=== PATIENT | female | born 1955 | race Caucasian/White ===

== ENCOUNTER 2017-12-29 19:40 | Emergency (ER) | payer OTHER ==
[~2017-12-29] VITALS: Ht 162.6 cm; Wt 102.1 kg
[~2017-12-29 19:40] MED LIST: BREX1TAB6 PO; CHLO100 PO; DIAZ10TA PO; LEVO100T4 PO; LOVA20 PO; TEMA15 PO
[2017-12-29 19:47] VITALS: BP 177/76; PULSE 79; RESP 18; TEMP 98.7; O2SAT 97
[2017-12-29] MEDS ORDERED: SODIUM CHLORIDE 0.9% FLUSH 10 ML FLUSH IVF PRN (21:00)
[2017-12-29] MEDS ORDERED: DEXAMETHASONE SOD PHOS 4 MG/ML VIAL IM ONE (21:45)
[2017-12-29] MEDS: RESP: ALBUTEROL 2.5 MG/IPRATROPIUM 0.5 MG NEB (SCH) INH ×3 (21:48→22:20)
--- NOTE | 2017-12-29 21:52 | RADRPT ---
EXAM DATE/TIME: 12/29/2017 21:20 [place] COMPARISON: CHEST SINGLE AP, November 24, 2015, 9:40. INDICATIONS : Cough MEDICAL HISTORY : Hypertension. Hypothyroidism. Diabetes mellitus type 2. SURGICAL HISTORY : Hysterectomy. Cholecystectomy. Appendectomy. ENCOUNTER: Initial ACUITY: 3 weeks PAIN SCORE: 8/10 LOCATION: Bilateral chest FINDINGS: Underinflated AP and lateral views of the chest demonstrate a normal-sized cardiac silhouette. There are linear opacities at the lung bases, right greater than left. No pleural effusion, pneumothorax, o r definite airspace consolidation is seen. The bones and soft tissues demonstrate no acute finding. C holecystectomy clips are present. CONCLUSION: Underinflation with atelectasis at the lung bases. Otherwise, no acute abnormality is identified. Angel Ventura MD on December 29, 2017 at 21:50 Board Certified Radiologist. This report was verified electronically.
--- NOTE | 2017-12-29 21:52 | PD ---
HPI . Cough Chief Complaint: Cold / Flu Symptoms Time Seen by Provider: 20:25 Travel History International Travel<30 days: No Contact w/Intl Traveler<30days: No Traveled to known affect area: No History of Present Illness HPI Patient presents with a chief complaint of a cough for the last 3 weeks. It is associated with shortness of breath and fevers and chills. It is getting worse rather than better. She has been treated probably with Tamiflu and Zithromax. Her family member is unable to recall exactly what the names of the medications were but she took a 5 day course of a "pre-flu" medicine and then another 5 day course of antibiotic. She has no known history of asthma or COPD. She is reporting some chest discomfort and cough which she rates at 4/10. It is exacerbated by coughing. PFSH Past Medical History Arthritis: No Asthma: No Autoimmune Disease: Yes Blood Disorders: No Anxiety: Yes Depression: Yes Heart Rhythm Problems: No Cancer: No Cardiovascular Problems: Yes (CHOL) High Cholesterol: No Chemotherapy: No Chest Pain: No Congestive Heart Failure: No COPD: No Cerebrovascular Accident: No Developmental Delay: Yes Diabetes: Yes Diminished Hearing: No Endocrine: Yes Gastrointestinal Disorders: Yes (CHRONIC CONSTIPATION ) GERD: No Glaucoma: No Genitourinary: Yes Hepatitis: No Hiatal Hernia: No Hypertension: Yes Immune Disorder: Yes Kidney Stones: Yes Musculoskeletal: Yes (FX RIGHT ELBOW) Neurologic: Yes (MENTALLY HANDICAPPED) Psychiatric: Yes Reproductive: No Respiratory: Yes Immunizations Current: Yes Migraines: No Myocardial Infarction: No Radiation Therapy: No Renal Failure: No Seizures: No Sickle Cell Disease: No Sleep Apnea: No Thyroid Disease: Yes Ulcer: Yes ?: Not Menopausal: Yes Past Surgical History Abdominal Surgery: Yes (GALLBLADDER REMOVED, APPENDECTOMY) AICD: No Appendectomy: Yes Arteriovenous Shunt: No Body Medical Devices: OLD ORIF RIGHT ELBOW, HARDWARE JUST REMOVED Cardiac Surgery: No Cholecystectomy: Yes Ear Surgery: No Endocrine Surgery: No Eye Surgery: No Genitourinary Surgery: No Gynecologic Surgery: Yes (HYSTERECTOMY) Hysterectomy: Yes Insulin Pump: No Joint Replacement: No Oral Surgery: No Pacemaker: No Thoracic Surgery: No Other Surgery: Yes Social History Alcohol Use: No Tobacco Use: No Substance Use: No Allergies-Medications (Allergen,Severity, Reaction): Coded Allergies: No Known Allergies (Verified Adverse Reaction, Unknown, 12/29/17) Reported Meds & Prescriptions Reported Meds & Active Scripts Active Thorazine 100 Mg Tab (Chlorpromazine HCl) 100 Mg Tab 100 Mg PO TID Diazepam 10 mg (Diazepam) 10 Mg Tab 1 Tab PO BID PRN Restoril 15 mg (Temazepam) 15 Mg Cap 1 Cap PO HS Rexulti (Brexpiprazole) 4 Mg Tab 4 Mg PO HS Levothyroxine 100 mcg (Levothyroxine Sodium) 100 Mcg Tab 50 Mcg PO DAILY 30 Days Reported Lovastatin 20 Mg Tab 1 Tab PO DAILY Review of Systems Except as stated in HPI: all other systems reviewed are Neg General / Constitutional: Positive: Fever, Chills Cardiovascular: Positive: Chest Pain or Discomfort Respiratory: Positive: Cough, Shortness of Breath Physical Exam Narrative GENERAL: Awake and alert and in no acute distress. SKIN: Warm and dry. HEAD: Normocephalic/atraumatic. EYES: Pupils are equal. Extraocular movements are intact. NECK: Normal range of motion. CARDIOVASCULAR: Regular rate and rhythm. RESPIRATORY: Nonlabored respirations. She has diminished air movement with diffuse coarse expiratory wheezing. MUSCULOSKELETAL: Atraumatic. NEUROLOGICAL: Nonfocal. PSYCHIATRIC: Appropriate mood and affect. Data Data Last Documented VS Vital Signs Date Time Temp Pulse Resp B/P (MAP) Pulse Ox O2 Delivery O2 Flow Rate FiO2 12/29/17 19:47 98.7 79 18 177/76 (109) 97 Orders Orders Basic Metabolic Panel (Bmp) (12/29/17 20:59) Complete Blood Count With Diff (12/29/17 20:59) Chest, Pa & Lat (12/29/17 20:59) Sodium Chloride 0.9% Flush (Ns Flush) (12/29/17 21:00) Albuterol-Ipratropium Neb (Duoneb Neb) (12/29/17 21:45) Dexamethasone Inj (Decadron Inj) (12/29/17 21:45) MDM Medical Decision Making Medical Screen Exam Complete: Yes Emergency Medical Condition: Yes Differential Diagnosis Differential diagnosis includes but is not limited to viral respiratory illness , bronchitis, pneumonia, allergies, CHF, asthma/COPD. Narrative Course This patient presents with a three-week history of cough associated with subjective fevers and chills, shortness of breath and chest soreness. By exam, she has bronchitis. Nursing staff reports that IV access is impossible this patient. Clinically, she has bronchitis. I will look at her chest x-ray. If she does not have pneumonia on her chest x-ray, I will cancel her labs. In the meantime, she is being treated with IM Decadron and stacked DuoNeb. Last Impressions Chest X-Ray 12/29/[id number] Signed Impressions: Service Date/Time: Friday, December 29, 2017 21:20 - CONCLUSION: Underinflation with atelectasis at the lung bases. Otherwise, no acute abnormality is identified. Angel Ventura MD This patient will be treated for bronchitis with albuterol and prednisone. Diagnosis Primary Impression: Bronchitis Patient Instructions: Acute Bronchitis (DC), General Instructions Med/Other Pt SpecificInfo: Prescription(s) given Scripts Prednisone (Prednisone) 50 Mg Tab 50 MG PO DAILY for 5 Days, #5 TAB 0 Refills Prov: Nancy Gibbs MD 12/29/17 Disposition: 01 DISCHARGE HOME Condition: Stable Nancy Gibbs MD Dec 29, 2017 21:52
[2017-12-29] MEDS ORDERED: PRED50 PO (22:12)
[2017-12-29] MEDS ORDERED: VENTAER INH (23:06)
[2017-12-29 23:35] VITALS: BP 132/75; TEMP 98.5
[2017-12-30] MEDS ORDERED: ALBUTEROL SULFATE 90 MCG/ACT HFA 8 GM INHALER INH SCH
== END 2017-12-29 23:35 | disposition home or self-care (01) ==
LOC: PHED 19:40
DX: J40 Bronchitis, not specified as acute or chronic (principal); I10 Essential (primary) hypertension; E11.9 Type 2 diabetes mellitus without complications; E03.9 Hypothyroidism, unspecified; F32.9 Major depressive disorder, single episode, unspecified; Z79.899 Other long term (current) drug therapy
CPT/HCPCS: 71046; 94640; 94664; 96372; 99283; J1100

== ENCOUNTER 2018-04-16 13:54 | Emergency (ER) | payer OTHER ==
[~2018-04-16] VITALS: Ht 167.6 cm; Wt 107.0 kg
[~2018-04-16 13:54] MED LIST changes: +PRED50 PO; +VENTAER INH
[2018-04-16 13:58] VITALS: BP 144/68; PULSE 70; RESP 16; TEMP 98.5; O2SAT 95
[2018-04-16] MEDS ORDERED: KETOROLAC TROMETHAMINE 60 MG/2 ML (IM) VIAL IM ONE (14:15)
--- NOTE | 2018-04-16 14:20 | PD ---
HPI Chief Complaint: Back pain Time Seen by Provider: 14:03 Travel History International Travel<30 days: No Contact w/Intl Traveler<30days: No Traveled to known affect area: No History of Present Illness HPI 62yo F with PMH of mental retardation, cerebral palsy, lupus, schizophrenia, anemia, chronic thrombocytopenia here with c/o lower back pain for 5 days. Pt just said she has pain and is a poor historian. Does not tell me if anything makes the pain better or worst. Denies any fever, chest pain, sob, n/v, abdominal pain, focal weakness or numbness. Denies any fall or trauma. Pt is brought in by mother who is the director career services and she said pt is at baseline mental status. Said she gave her tylenol and bengay but did not seem to work. Denies any IVDA. PFSH Past Medical History Arthritis: No Asthma: No Autoimmune Disease: Yes Blood Disorders: No Anxiety: Yes Depression: Yes Heart Rhythm Problems: No Cancer: No Cardiovascular Problems: Yes (CHOL) High Cholesterol: No Chemotherapy: No Chest Pain: No Congestive Heart Failure: No COPD: No Cerebrovascular Accident: No Developmental Delay: Yes Diabetes: Yes Diminished Hearing: No Endocrine: Yes Gastrointestinal Disorders: Yes (CHRONIC CONSTIPATION ) GERD: No Glaucoma: No Genitourinary: Yes Hepatitis: No Hiatal Hernia: No Hypertension: Yes Immune Disorder: Yes Kidney Stones: Yes Musculoskeletal: Yes (FX RIGHT ELBOW) Neurologic: Yes (MENTALLY HANDICAPPED) Psychiatric: Yes Reproductive: No Respiratory: Yes Immunizations Current: Yes Migraines: No Myocardial Infarction: No Radiation Therapy: No Renal Failure: No Seizures: No Sickle Cell Disease: No Sleep Apnea: No Thyroid Disease: Yes Ulcer: Yes Menopausal: Yes Past Surgical History Abdominal Surgery: Yes (GALLBLADDER REMOVED, APPENDECTOMY) AICD: No Appendectomy: Yes Arteriovenous Shunt: No Body Medical Devices: OLD ORIF RIGHT ELBOW, HARDWARE JUST REMOVED Cardiac Surgery: No Cholecystectomy: Yes Ear Surgery: No Endocrine Surgery: No Eye Surgery: No Genitourinary Surgery: No Gynecologic Surgery: Yes (HYSTERECTOMY) Hysterectomy: Yes Insulin Pump: No Joint Replacement: No Oral Surgery: No Pacemaker: No Thoracic Surgery: No Other Surgery: Yes Social History Alcohol Use: No Tobacco Use: No Substance Use: No Allergies-Medications (Allergen,Severity, Reaction): Coded Allergies: No Known Allergies (Verified Adverse Reaction, Unknown, 04/16/18) Reported Meds & Prescriptions Reported Meds & Active Scripts Active Prednisone 50 Mg Tab 50 Mg PO DAILY 5 Days Reported [place]-3 Fish Oil/Vitamin (Fish Oil-Cholecalciferol) 1,000-1,000 Mg Cap 1 Cap PO DAILY Aspirin EC (Aspirin) 81 Mg Tabdr 81 Mg PO DAILY Escitalopram (Escitalopram Oxalate) 10 Mg Tab 10 Mg PO DAILY Lasix (Furosemide) 20 Mg Tab 20 Mg PO DAILY Diazepam 10 Mg Tab 10 Mg PO HS PRN Levothyroxine (Levothyroxine Sodium) 50 Mcg Tab 50 Mcg PO DAILY Aripiprazole 5 Mg Tab 5 Mg PO DAILY Lovastatin 20 Mg Tab 20 Mg PO DAILY Review of Systems Except as stated in HPI: all other systems reviewed are Neg Physical Exam Narrative GENERAL: 62yo F not in distress. SKIN: Focused skin assessment warm/dry. HEAD: Atraumatic. Normocephalic. EYES: Pupils equal and round. No scleral icterus. No injection or drainage. ENT: No nasal bleeding or discharge. Mucous membranes pink and moist. NECK: Trachea midline. No JVD. CARDIOVASCULAR: Regular rate and rhythm. No murmur appreciated. RESPIRATORY: No accessory muscle use. Clear to auscultation. Breath sounds equal bilaterally. GASTROINTESTINAL: Abdomen soft, non-tender, nondistended. BACK: +TTP L5 midline. No CVA tenderness bilaterally. MUSCULOSKELETAL: No obvious deformities. No clubbing. No cyanosis. No edema. NEUROLOGICAL: Awake and alert. No obvious cranial nerve deficits. Motor grossly within normal limits in all extremities. Sensation equal bilaterally. No radiculopathy. Normal speech. PSYCHIATRIC: Appropriate mood and affect; insight and judgment normal. Data Data Last Documented VS Vital Signs Date Time Temp Pulse Resp B/P (MAP) Pulse Ox O2 Delivery O2 Flow Rate FiO2 04/16/18 14:18 16 04/16/18 13:58 98.5 70 144/68 (93) [address] Lumb Spine W/O Contrast (04/16/18 ) Urinalysis - C+S If Indicated (04/16/18 14:14) Ketorolac Inj (Toradol Inj) (04/16/18 14:15) Urine Culture (04/16/18 14:45) Cephalexin (Keflex) (04/16/18 15:30) Labs Laboratory Tests Test 04/16/18 14:45 Urine Collection Type CLEAN CATCH Urine Color YELLOW Urine Turbidity CLEAR Urine pH 8.0 Urine Specific [place] 1.015 Urine Protein NEG mg/dL Urine Glucose (UA) NEG mg/dL Urine Ketones NEG mg/dL Urine Occult Blood NEG Urine Nitrite NEG Urine Bilirubin NEG Urine Urobilinogen 4.0 MG/DL Urine Leukocyte Esterase MOD Urine WBC 0-2 /hpf Urine WBC Clumps FEW Urine Squamous Epithelial Cells 0-2 /hpf Urine Bacteria RARE /hpf Microscopic Urinalysis Comment CULTURE INDICATED MDM Medical Decision Making Medical Screen Exam Complete: Yes Emergency Medical Condition: Yes Differential Diagnosis Musculoskeletal pain vs. fracture vs. arthritis Narrative Course 62yo F with back pain for 5 days. Pt given toradol and pain has improved. UA showed moderate leukocyte. Few WBC clumps. Rare bacteria. Culture indicated. Pt given keflex. CT LS showed no acute fracture. Pt has no focal neurologic deficits. No red flags. Return precautions given. Diagnosis Primary Impression: UTI (urinary tract infection) Qualified Codes: N39.0 - Urinary tract infection, site not specified Patient Instructions: General Instructions Departure Forms: Tests/Procedures Additional Instructions: Please follow up with your primary care physician in 2-3 days. Return to ED if symptoms worsen. Med/Other Pt SpecificInfo: Prescription(s) given Scripts Acetaminophen (Tylenol) 325 Mg Tab 650 MG PO Q6H Y for PAIN SCALE 1 TO 4, #20 TAB 0 Refills Prov: PompaSupriya de la torre 04/16/18 Cephalexin (Cephalexin) 500 Mg Cap 500 MG PO Q12H for Infection for 7 Days, #14 CAP 0 Refills Prov: Supriya Pompa DO 04/16/18 Disposition: 01 DISCHARGE HOME Condition: Stable PompaSupriya de la torre Apr 16, 2018 14:20
[2018-04-16] MEDS ORDERED: FURO1TAB62 PO (14:40)
[2018-04-16] MEDS ORDERED: ASPI81TA23 PO (14:40)
[2018-04-16] MEDS ORDERED: ARIP1TAB11 PO (14:40)
[2018-04-16] MEDS ORDERED: ESCI10TA PO (14:40)
[2018-04-16] MEDS ORDERED: LOVA20TA PO (14:40)
[2018-04-16] MEDS ORDERED: OMEGCAP PO (14:40)
[2018-04-16] MEDS ORDERED: LEVO50TA4 PO (14:40)
[2018-04-16] MEDS ORDERED: DIAZ10TA PO (14:40)
[2018-04-16 14:58] LABS: BILIRUBIN, URINE NEG (NEG); BLOOD, URINE NEG (NEG); GLUCOSE,URINE NEG (NEG); KETONE, URINE NEG (NEG); NITRITE,URINE NEG (NEG); URINE COLOR YELLOW (YELLW/STRAW); URINE LEUKOCYTE ESTERASE MOD (NEG)
[2018-04-16 15:11] LABS: WBC, URINE 0-2 /hpf (0-5); WHITE BLOOD CELL CLUMPS FEW
[2018-04-16 15:12] LABS: BACTERIA, URINE RARE /hpf; SQUAMOUS EPITHELIAL CELL URINE 0-2 /hpf (0-5)
--- NOTE | 2018-04-16 15:22 | RADRPT ---
EXAM DATE: 04/16/2018 3:14 PM EDT AGE/SEX: 62 years / Female INDICATIONS: Low back pain x 5 days. CLINICAL DATA: This is the patient's initial encounter. Patient reports that signs and symptoms have been present for 4 - 6 days and indicates a pain score of 7/10. MEDICAL/SURGICAL HISTORY: Lupus. Diabetes. Hypercholesterolemia. Mental retardation. Hypertensio n. Ulcer. Appendectomy. Hysterectomy. Cholecystectomy. RADIATION DOSE: 40.06 CTDI (mGy) ; Patient body habitus COMPARISON: No prior exams available for comparison. TECHNIQUE: Contiguous axial images were acquired with a multirow detector CT scanner without contras t. Multiplanar reconstructions in the sagittal and coronal plane were also performed. Using automate d exposure control and adjustment of the mA and/or kV according to patient size, radiation dose was k ept as low as reasonably achievable to obtain optimal diagnostic quality images. FINDINGS: Vertebrae: Normal vertebral body height. Alignment: Mild scoliosis is noted. No subluxation. T12-L1: The thecal sac has a normal diameter. No evidence of disc bulge or protrusion. The neural foramina are patent bilaterally. L1-L2: The thecal sac has a normal diameter. No evidence of disc bulge or protrusion. The neural f oramina are patent bilaterally. L2-L3: The thecal sac has a normal diameter. No evidence of disc bulge or protrusion. The neural f oramina are patent bilaterally. L3-L4: The thecal sac has a normal diameter. No evidence of disc bulge or protrusion. The neural f oramina are patent bilaterally. L4-L5: The thecal sac has a normal diameter. Minimal diffuse disc bulge is noted. No evidence of di sc protrusion. Mild bilateral foraminal narrowing is noted. Facet joint hypertrophy is noted bilatera lly. L5-S1: The thecal sac has a normal diameter. Minimal diffuse disc bulge is noted. No evidence of di sc protrusion. Mild bilateral foraminal narrowing is noted. Facet joint hypertrophy is noted bilatera lly. CONCLUSION: 1. No acute fracture, spondylolisthesis or spondylolysis. 2. Minimal diffuse disc bulges at L4-5 and L5-S1. 3. Minimal diffuse disc bulges and facet joint hypertrophy resulting in mild bilateral foraminal neto rowing at L4-5 and L5-S1. 4. Mild scoliosis. Electronically signed by: Lucho Drake MD 04/16/2018 3:20 PM EDT
[2018-04-16] MEDS ORDERED: CEPHALEXIN MONOHYDRATE 500 MG CAP PO ONE (15:30)
[2018-04-16] MEDS ORDERED: TYLE325T PO (15:44)
[2018-04-16] MEDS ORDERED: CEPH500C PO (15:44)
[2018-04-16 16:05] VITALS: BP 140/70; PULSE 70; RESP 18; O2SAT 97
== END 2018-04-16 16:06 | disposition home or self-care (01) ==
LOC: PHED 13:54
DX: N39.0 Urinary tract infection, site not specified (principal); F79 Unspecified intellectual disabilities; G80.9 Cerebral palsy, unspecified; M32.9 Systemic lupus erythematosus, unspecified; F20.9 Schizophrenia, unspecified; D69.6 Thrombocytopenia, unspecified; F41.9 Anxiety disorder, unspecified; F32.9 Major depressive disorder, single episode, unspecified; I10 Essential (primary) hypertension; E11.9 Type 2 diabetes mellitus without complications; E07.9 Disorder of thyroid, unspecified; Z87.442 Personal history of urinary calculi; E78.00 Pure hypercholesterolemia, unspecified; K59.09 Other constipation
CPT/HCPCS: 72131; 81001; 87086; 96372; 99284; J1885